=== PATIENT | male | born 1945 | race Caucasian/White ===

== ENCOUNTER → 2016-07-09 | Outpatient (CLI) | payer MEDICARE, OTHER | END | disposition disaster alternative care site (69) | LOC: GRAD 10:20 | DX: M51.16 Intervertebral disc disorders with radiculopathy, lumbar region (principal); M47.26 Other spondylosis with radiculopathy, lumbar region ==

== ENCOUNTER → 2016-07-30 | Outpatient (CLI) | payer MEDICARE, OTHER ==
[2016-07-30 16:57] LABS: ALBUMIN 3.7 gm/dL (3.5-5.0); ANION GAP 15.3 (10.0-19.0); CALCIUM 8.8 mg/dL (8.5-10.5); CREATININE 1.3 mg/dL (0.6-1.3); PHOSPHORUS 2.3 mg/dL (2.5-4.9); POTASSIUM 4.3 mMol/L (3.7-5.1)
== END | disposition disaster alternative care site (69) ==
LOC: LNHI 16:33
PROVIDERS: Surgery Vascular Surgery
DX: I70.219 Atherosclerosis of native arteries of extremities with intermittent claudication, unspecified extremity (principal)

== ENCOUNTER → 2016-08-01 | Outpatient (CLI) | payer MEDICARE, OTHER | END | disposition disaster alternative care site (69) | LOC: GRAD 15:37 | DX: Z03.89 Encounter for observation for other suspected diseases and conditions ruled out (principal); I70.209 Unspecified atherosclerosis of native arteries of extremities, unspecified extremity; I71.02 Dissection of abdominal aorta; K76.0 Fatty (change of) liver, not elsewhere classified; K57.90 Diverticulosis of intestine, part unspecified, without perforation or abscess without bleeding | CPT/HCPCS: Q9967 ==